=== PATIENT | female | born 1980 | race Caucasian/White ===

== ENCOUNTER 2017-01-06 07:09 | Day surgery (SDC) | payer BC ==
[2017-01-03 14:03] VITALS: BMI 26.6
[2017-01-06 08:14] VITALS: BP 118/87; TEMP 97.9
[2017-01-06] MEDS ORDERED: FLU VACC QS2017-18 36 mo. & older 0.5 ML SYRINGE IM ONE (09:00)
--- NOTE | 2017-01-06 11:49 | CT ---
CERVICAL MYELOGRAM CT CERVICAL SPINE WITH CONTRAST: HISTORY: Ongoing neck pain with radiculopathy. FINDINGS: After explaining the procedure and answering all questions, the lower back was prepped and draped in the usual sterile fashion. Sterile technique, buffered local anesthesia, fluoroscopic guidance, and a posterior L2-3 approach were used to carefully advance the tip of a 22-gauge spinal needle into the thecal sac. Approximately 8 cc of Isovue-300M contrast was carefully instilled into the thecal sac under fluoroscopic control. The needle was removed. The patient was repositioned to move the contr ast material to the cervical spine without difficulty. The patient tolerated the procedure well and was transferred to MRI in good condition for further imaging. Vertebral body height and alignment of the cervical spine are maintained on the CT images. Postopera tive changes of the lower cervical spine are evident. No acute fracture or dislocation. C2-3: There is normal osteophytosis. The central canal and neural foramen are patent. C3-4: There is minimal osteophytosis. The central canal and neural foramina are patent. C4-5: Very mild posterior osteophyte/disk complex is present without significant compromise of the t hecal sac. There is mild osteophytosis of the facets. The central canal and neural foramen are deleon nt. C5-6: Postoperative changes are apparent. No evidence of hardware complication. The central canal and neural foramen are patent. C6-7: Postoperative changes are apparent without hardware complication. There is mild osteophytosis . The central canal and neural foramen are patent. C7-T1: There is mild osteophytosis. The central canal and neural foramen are patent. IMPRESSION: Postoperative changes of the lower cervical spine without evidence of complication. There are very m ild degenerative changes without focal nerve root compression. POS: [facility]
[2017-01-06] MEDS ORDERED: Iopamidol-M 300 61% 15 ML VIAL ONE (13:52)
== END 2017-01-06 10:10 | disposition home or self-care (01) ==
LOC: RAD 07:09
PROVIDERS: ATTEND Neurological Surgery
PROC: B01B1ZZ Fluoroscopy of Spinal Cord using Low Osmolar Contrast (ICD-10-PCS; principal; 2017-01-06)
DX: M54.12 Radiculopathy, cervical region (principal)
CPT/HCPCS: 62302; 72126

== ENCOUNTER 2018-03-19 07:50 | Outpatient (CLI) | payer BC ==
[2018-03-19 12:45] LABS: Hemoglobin 13.2 g/dL (12.0-16.0); Mean Corpuscular Hemoglobin 34.2 pg (27.0-31.0); Mean Platelet Volume 7.4 fL (7.4-10.4); Platelet Count 327 thou/uL (130-400); RBC Distribution Width 11.7 % (11.5-14.5); Red Blood Cell (RBC) Count 3.87 mill/uL (4.20-5.40); White Blood Cell (WBC) Count 9.8 thou/uL (4.8-10.8)
[2018-03-19 13:10] LABS: BHCG - Serum Negative (NEGATIVE); Pregs Control Background? CLEAR/WHITE (CLR/WHITE); Pregs Control Bar Appear? YES (CONTROL BAR)
== END 2018-03-19 07:51 | disposition home or self-care (01) ==
LOC: LABBT 07:50
PROVIDERS: ATTEND Obstetrics & Gynecology
DX: Z01.812 Encounter for preprocedural laboratory examination (principal); N94.6 Dysmenorrhea, unspecified
CPT/HCPCS: 84703; 85027; 86850; 86900; 86901

== ENCOUNTER 2018-03-19 12:00 | Inpatient (IN) | payer BC ==
--- NOTE | 2018-03-19 10:24 | HP ---
ANTICIPATED DATE OF SURGERY: March 24, 2018 HISTORY OF PRESENT ILLNESS: Ms. Anderson is a 37-year-old white female, G2, P2, who has been having very painful menstrual cramps over the past year. She has been using ibuprofen 800 mg every 8 hours along with Tylenol combined. She also reports feeling like she is going to start her menstrual cycle all the time. The cramps become very severe a few days prior to the start of her slow. The cycles are regular and moderate flow. Her has had vasectomy. She reports having to schedule her life around her menstrual cycles due to the pain. Due to that, she is desiring definitive surgical therapy. PAST MEDICAL HISTORY: She does have anxiety and attention deficit disorder. PAST SURGICAL HISTORY: She has had a neck surgery in the past. OB HISTORY: Two spontaneous vaginal deliveries. Pap smear obtained, November 2017, was negative with normal cells and negative HPV. FAMILY HISTORY: Noncontributory. CURRENT MEDICATIONS ARE: Escitalopram 10 mg tablet one p.o. daily. ALLERGIES: SHE HAS NO KNOWN DRUG ALLERGIES. PHYSICAL EXAMINATION: VITAL SIGNS: Her height is 5 feet 5 inches, weight 165 with BMI 27.5, blood pressure 110/64, pulse is 90 and regular. HEENT EXAM: Within normal limits. NECK: Supple. No thyromegaly or masses. CHEST: Clear to auscultation. HEART: Regular rate and rhythm. S1, S2 heart sounds. No murmurs, rubs, or gallops. BREASTS: Show no masses, nipple discharge or skin changes. ABDOMEN: Soft, nontender, nondistended with no hepatosplenomegaly. PELVIC EXAM: Vulva and vagina had no lesions. There was no significant cystocele, rectocele appreciated. Cervix had no visible lesions or cervical motion tenderness. Uterus was midline, smooth, and no masses. Not enlarged, but there was some tenderness in the uterus mildly. Adnexa had no masses and are nontender. Bladder and urethra were normal. ASSESSMENT: This is a 37-year-old white female, G2, P2, with severe dysmenorrhea and chronic pain symptoms unresponsive to nonsteroidal management. She is desiring definitive surgical therapy. She is not desiring further childbearing. PLAN: Plan is to proceed with robotic total laparoscopic hysterectomy with bilateral salpingectomy. Plan for ovarian conservation unless abnormalities of the ovaries are encountered during the surgical process. Clinically, the patient appears to have adenomyosis with possible endometriosis. The surgery is set for 03/24/2018. Job ID: [id number]
[2018-03-19 12:17] VITALS: BMI 27.4
[2018-03-24] MEDS ORDERED: Bupivacaine HCl 0.5%/Epinephrine 1:200,000/PF 30 ml Vial ONE (06:33)
[2018-03-24] MEDS ORDERED: Fentanyl 250 MCG/5 ML VIAL ONE (06:54)
[2018-03-24] MEDS ORDERED: Gabapentin 300 MG CAP ONE (07:03)
[2018-03-24] MEDS ORDERED: Famotidine/PF 20 mg/2ml Vial ONE (07:03)
[2018-03-24] MEDS ORDERED: CeleCOXIB 100 MG CAP ONE (07:03)
[2018-03-24] MEDS ORDERED: CEFAZOLIN 2 GM/50 ML BAG ONE (07:03)
[2018-03-24] MEDS ORDERED: Scopolamine 1.5 mg/72 hour Patch ONE (07:03)
[2018-03-24] MEDS ORDERED: Fentanyl 100 MCG/2 ML VIAL ONE (09:22)
[2018-03-24] MEDS ORDERED: Meperidine HCl/PF 25 MG/ML VIAL SLOW IVP PRN (09:25)
[2018-03-24] MEDS ORDERED: diphenhydrAMINE 50 MG/ML VIAL IM PRN (09:25)
[2018-03-24] MEDS ORDERED: diphenhydrAMINE 50 MG/ML VIAL IVP PRN (09:25)
[2018-03-24] MEDS ORDERED: Zolpidem Tartrate 5 MG TAB PO PRN ×2 (09:25→21:00)
[2018-03-24] MEDS ORDERED: fentaNYL Citrate/PF 2,000 MCG in Sodium Chloride 0.9% 60 ML IV PRN (09:25)
[2018-03-24] MEDS ORDERED: Promethazine HCl 25 MG/ML VIAL IM PRN ×3 (09:25→11:33)
[2018-03-24] MEDS ORDERED: Ketorolac Tromethamine 30 MG/ML VIAL IVP PRN (09:25)
[2018-03-24] MEDS ORDERED: diphenhydrAMINE 25 MG CAP PO PRN ×2 (09:25→11:33)
[2018-03-24] MEDS ORDERED: Ondansetron PF 4 MG/2 ML Vial IVP PRN ×2 (09:25→11:33)
[2018-03-24] MEDS ORDERED: Naloxone HCl 0.4 mg/ml Vial IV PRN (09:25)
[2018-03-24] MEDS ORDERED: Ondansetron HCl/PF 4 MG/2 ML Vial IVP PRN (09:25)
[2018-03-24] MEDS ORDERED: Promethazine HCl 25 MG/ML VIAL SLOW IVP PRN (09:25)
[2018-03-24] MEDS ORDERED: Communication Order-Pharmacy FS SCH (09:30)
[2018-03-24] MEDS ORDERED: Acetaminophen 325 MG TAB PO PRN (11:33)
[2018-03-24] MEDS ORDERED: Bisacodyl 10 MG SUPP PR PRN (11:33)
[2018-03-24] MEDS ORDERED: Simethicone Chewable 80 MG TAB PO PRN (11:33)
[2018-03-24] MEDS ORDERED: Morphine 4 MG/ML VIAL SLOW IVP PRN ×2 (11:33→21:00)
--- NOTE | 2018-03-24 11:58 | OP ---
DATE OF PROCEDURE: 03/24/2018 PREOPERATIVE DIAGNOSES: 37-year-old white female with severe dysmenorrhea, menorrhagia, unresponsive to medical management. POSTOPERATIVE DIAGNOSES: 37-year-old white female with severe dysmenorrhea, menorrhagia, unresponsive to medical management, small uterine fibroids noted. PROCEDURES PERFORMED: Robotic total laparoscopic hysterectomy and bilateral salpingectomy. FLORIST SURGEON: Kerline Rockwell MD. ANESTHESIA: General endotracheal. ESTIMATED BLOOD LOSS: 25 mL. COMPLICATIONS: None. COUNTS: Correct x2. ANTIBIOTICS: 2 g Ancef, on-call to OR, and ERAS protocol. FINDINGS: 1. Normal-appearing bilateral fallopian tubes and ovaries. 2. Uterus, mildly enlarged with some small uterine fibroids seen. 3. Clear urine present in Hinojosa catheter postprocedure and bilateral ureteral peristalsis visualized postprocedure. DISPOSITION: To recovery room, stable. DESCRIPTION OF PROCEDURE: The patient previously received informed consent in regard to surgery. She was taken back to the operating room, where she received a general endotracheal anesthetic agent without complications. She was placed in dorsal lithotomy position with the use of Shoaib stirrups and prepped and draped in usual sterile fashion. At this time, a side-arm speculum was placed in the vagina after a Hinojosa catheter had been placed. The cervix was grasped with single-tooth tenaculum and the uterus sounded to 9 cm. A size 8 cm CLARISA uterine manipulator with 4.0 cm cervical cup was placed. Tenaculum and speculum were then removed. Attention was then turned to the abdomen, where perspective trocar sites were infiltrated with 0.5% Marcaine with epinephrine. A 12 mm supraumbilical incision was made. Veress needle was entered into the peritoneal cavity. The patient's pressure was noted to be less than 5 mmHg. The abdomen was insufflated to the patient's pressure of 15 approximately 4.5 L of carbon dioxide gas. Veress needle was then removed and a size 12 mm trocar was then placed. The laparoscope was introduced through the trocar sleeve confirming proper entry. Additional bilateral lower quadrant 8 mm robotic trocars were placed along with the right upper quadrant and the right upper quadrant 11 mm trocar. The patient was placed in deep Trendelenburg position and the robot was docked in usual fashion. I then proceeded to carry out the surgery from the operative console while my assistants remained at the bedside. The uterus was elevated by my assistants. The right fallopian tube was grasped with an atraumatic grasper. Defect in the mesosalpinx was created with monopolar scissors and the mesosalpinx was coagulated and transected with bipolar fenestrated cautery and a monopolar scissors removing the fallopian tube through the right upper quadrant port. The right utero-ovarian ligament was then coagulated and transected, and serial coagulation of broad ligament hugging close to the uterus was carried out to the right round ligament was reached. It was coagulated and transected and the anterior leaf of the broad ligament was entered, developing the vesicouterine peritoneal dissection both sharply and bluntly, dropping the bladder atraumatically past the cervical vaginal margin. The uterine vessels were skeletonized in layering technique on the right side and then they were coagulated at the internal cervical os region. This was carried down the left fallopian tube in likewise fashion, coagulating the mesosalpinx, dissecting, and excising the left fallopian tube. The utero-ovarian ligament of the left side was coagulated and transected. Serial coagulation of the broad ligament hugging close to uterus again was carried down the left round ligament, where it was coagulated and transected. The uterine vessels were skeletonized for layering of the vesicouterine peritoneum, it was carried out, dissecting the bladder atraumatically past the cervical vaginal margin. The uterine vessels again were skeletonized and coagulated in the internal cervical os. The anterior colpotomy was then created starting from 12 o'clock to 3 o'clock and 12 o'clock to 9 o'clock position and the uterine vessels were coagulated again at the 3 o'clock and 9 o'clock position. Posterior colpotomy completed the dissection from 6 to 3 and 6 to 9. The uterine specimen was delivered in the vaginal vault by my trade sales assistant. A Phan Needle Senior Consulting Manager switched for the monopolar scissors. The vaginal cuff was coagulated of any areas of oozing with bipolar fenestrated cautery. Stratafix was then delivered into the abdomen by my trade sales assistant through the right upper quadrant port. The vaginal cuff was closed in a full-thickness layer closure starting from the right angle to the left angle and back towards the right angle in double-layered closure. Hemostasis was confirmed. The suture and needle were removed. The pelvis was irrigated and suctioned. Pedicle sites were confirmed to be hemostatic. Clear urine was draining from the Hinojosa catheter. Bilateral ureteral peristalsis was visualized in the pelvic side wall, the course of the ureters below the surgical dissection. The robot was then undocked. The trocars were removed and a deep stitch of 0 Vicryl was placed in the fascial incision in the supraumbilical area. The remainder of the trocar sites were closed with 4-0 Monocryl subcuticular and Dermabond. The patient was awakened and transferred to recovery room in stable condition. Job ID: [id number]
[2018-03-24] MEDS: Lactated Ringer's 1,000 ML IV SCH ×2 (12:43→17:02)
[2018-03-24] MEDS: Ketorolac Tromethamine 30 MG/ML VIAL IVP SCH ×2 (12:46→18:49)
[2018-03-24] MEDS ORDERED: Lidocaine 1% PF 5 ML VIAL ONE (16:51)
[2018-03-24] MEDS ORDERED: Succinylcholine Chloride 20 MG/ML 10 ml SYRINGE FS ONE (16:51)
[2018-03-24] MEDS ORDERED: PROPOFOL 200 MG/20 ML VIAL ONE (16:51)
[2018-03-24] MEDS ORDERED: PHENYLEPHRINE-NS 100 MCG/ML 10 ML SYRINGE ONE (16:51)
[2018-03-24] MEDS ORDERED: Glycopyrrolate 0.2 MG/ML 5 ML SYRINGE ONE (16:51)
[2018-03-24] MEDS ORDERED: Rocuronium Bromide 10 MG/ML (10ML VIAL) ONE (16:51)
[2018-03-24] MEDS ORDERED: Ondansetron PF 4 MG/2 ML Vial ONE (16:51)
[2018-03-24] MEDS ORDERED: Dexamethasone 20 MG/5 ML VIAL ONE (16:51)
[2018-03-24] MEDS: Ibuprofen 800 MG TAB PO SCH (19:18)
[2018-03-24] MEDS ORDERED: traMADol HCl 50 MG TAB PO PRN ×2 (21:00)
[2018-03-25] MEDS: Ketorolac Tromethamine 30 MG/ML VIAL IVP SCH ×2 (00:31→06:03)
[2018-03-25] MEDS: Lactated Ringer's 1,000 ML IV SCH (00:37)
[2018-03-25 03:25] VITALS: TEMP 98.2
[2018-03-25 07:15] LABS: Hemoglobin 11.4 g/dL (12.0-16.0); Mean Corpuscular Hemoglobin 34.6 pg (27.0-31.0); Mean Platelet Volume 7.4 fL (7.4-10.4); Platelet Count 287 thou/uL (130-400); RBC Distribution Width 11.7 % (11.5-14.5); White Blood Cell (WBC) Count 10.9 thou/uL (4.8-10.8)
[2018-03-25 08:13] VITALS: BP 104/61
[2018-03-25] MEDS ORDERED: Escitalopram Oxalate 10 mg Tablet PO SCH (09:00)
[2018-03-25] MEDS ORDERED: Multivit, Therapeutic 1 TAB PO SCH (09:00)
--- NOTE | 2018-03-26 00:10 | DIS ---
DATE OF ADMISSION: 03/24/2018 DATE OF DISCHARGE: 03/25/2018 DIAGNOSES: Menorrhagia, dysmenorrhea, and uterine fibroids, responsive to medical management. PROCEDURES PERFORMED: Robotic total laparoscopic hysterectomy, bilateral salpingectomy. SUMMARY OF HOSPITAL COURSE: Ms. Anderson is a 37-year-old white female, who had progressive dysmenorrhea and menorrhagia complaints with failed medical management trial. She underwent uncomplicated robotic total laparoscopic hysterectomy with bilateral salpingectomy on 03/24/2018. Postoperatively, the patient has done well. Vital signs have remained stable. She has been ambulating and voiding without difficulty and tolerating regular diet in the morning of postop day #1. Pathology is pending at the time of dictation. Postoperative hematocrit was appropriate at 34%. Pain control was adequate with nonsteroidals and tramadol p.r.n. She was discharged home with followup in 2 weeks and 6 weeks. Discharge medications will be tramadol 50 mg q.6 hours p.r.n. pain, [id number] ibuprofen as directed, and pathology will be reviewed in the next day when available. Job ID: [id number]
== END 2018-03-25 10:48 | disposition home or self-care (01) | DRG 743 ==
LOC: SURG A 03-24 06:08 → 3SE 03-24 11:04
PROVIDERS: ADMIT Obstetrics & Gynecology; ATTEND Obstetrics & Gynecology
PROC: 0UT94ZZ Resection of Uterus, Percutaneous Endoscopic Approach (ICD-10-PCS; principal; 2018-03-24)
PROC: 0UT74ZZ Resection of Bilateral Fallopian Tubes, Percutaneous Endoscopic Approach (ICD-10-PCS; 2018-03-24)
DX: N80.0 Endometriosis of uterus (principal); D25.9 Leiomyoma of uterus, unspecified; R19.2 Visible peristalsis; F41.9 Anxiety disorder, unspecified; N94.6 Dysmenorrhea, unspecified; F98.8 Other specified behavioral and emotional disorders with onset usually occurring in childhood and adolescence; Z79.899 Other long term (current) drug therapy
CPT/HCPCS: 36415; 85027; 88307; J0670; J1100; J1885; J2001; J2405; J2704; J3010; J7050; S0028

== ENCOUNTER 2019-02-03 08:18 | Outpatient (CLI) | payer BC ==
--- NOTE | 2019-02-04 09:03 | NM ---
RADIOIODINE THYROID UPTAKE AND SCAN: HISTORY: Thyrotoxicosis, unspecified with thyrotoxic crisis RADIOPHARMACEUTICAL: 259 uCi I-123 administered orally FINDINGS: Planar anterior and both anterior oblique images of the thyroid gland were obtained. There is homogeneous tracer distribution to both lobes of the thyroid gland without focal cold or hot nodules. The 24-hour uptake measures 43 % (normal 10-30%). IMPRESSION: Findings are consistent with hyperthyroid Graves' disease.
== END 2019-02-03 08:19 | disposition home or self-care (01) ==
LOC: NM 08:18
PROVIDERS: ATTEND Internal Medicine Endocrinology, Diabetes & Metabolism
DX: E05.91 Thyrotoxicosis, unspecified with thyrotoxic crisis or storm (principal); E05.00 Thyrotoxicosis with diffuse goiter without thyrotoxic crisis or storm
CPT/HCPCS: 78014; A9516

== ENCOUNTER 2023-11-28 13:10 | Outpatient (CLI) | payer BC | END 2023-11-28 13:11 | disposition home or self-care (01) | LOC: BICMAMMO 13:10 | PROVIDERS: ATTEND Family Medicine | DX: Z12.31 Encounter for screening mammogram for malignant neoplasm of breast (principal); Z80.3 Family history of malignant neoplasm of breast | CPT/HCPCS: 77063; 77067 ==